=== PATIENT | female | born 1995 | race American Indian/Alaskan Native ===

== ENCOUNTER 2019-07-05 11:52 | Emergency (ER) | payer OTHER, MEDICAID, SELFPAY ==
[2019-07-05 12:06] VITALS: BP 118/70; PULSE 70; RESP 22; TEMP 37.2; O2SAT 99; BMI 33.2
--- NOTE | 2019-07-05 12:10 | DI.RAD.S_ITS ---
PROCEDURE: XR CHEST 2V INDICATIONS: cough, sob, asthma TECHNIQUE: 2 views of the chest were acquired. COMPARISON: None. FINDINGS: Surgical changes and devices: None. Lungs and pleura: Lungs are clear. No pleural effusions or pneumothorax. Mediastinum: Mediastinal contours are normal. Heart size is normal. Bones and chest wall: No suspicious bony abnormalities. Soft tissues appear unremarkable. IMPRESSION: No acute cardiopulmonary disease. Dictated by: Debbie Sue M.D. on 07/05/2019 at 12:41 Approved by: Debbie Sue M.D. on 07/05/2019 at 12:41
--- NOTE | 2019-07-05 12:13 | ED.SOB ---
HPI - SOB/Dyspnea <SOFIA Antonio - Last Filed: 07/05/19 15:37> General Chief Complaint: Shortness of Breath/Dyspnea Stated Complaint: cough/asthma Time Seen by Provider: 07/05/19 12:00 Source: patient Mode of arrival: Ambulatory Limitations: no limitations History of Present Illness HPI Narrative: The patient is a 23-year-old female current smoker with history of asthma who presents for chief complaint of an asthma attack. She complains of cough over the past 2 weeks which is worsening. She states she has been using her puffer as well as albuterol nebulizers with no improvement at home. She states she cannot stop coughing. She has been coughing so hard, that her chest hurts when she coughs. She complains of difficulty sleeping due to cough. She states her ear hurts when she is coughing. She denies any abdominal pain, vomiting or diarrhea. Related Data Home Medications Medication Instructions Recorded Confirmed albuterol sulfate [Ventolin HFA] #0 04/30/17 hydroxyzine HCl 25 mg PO BID 07/05/19 07/05/19 trazodone 50 mg PO BEDTIME 07/05/19 07/05/19 Previous Rx's Medication Instructions Recorded ipratropium-albuterol 3 ml INHALATION Q4-6H PRN #90 ml 07/05/19 prednisone 50 mg PO DAILY #5 tab 07/05/19 Allergies Allergy/AdvReac Type Severity Reaction Status Date / Time oxycodone [OXYCODONE] Allergy Severe SWELLING Verified 07/05/19 12:06 Review of Systems <SOFIA Antonio - Last Filed: 07/05/19 15:37> Review of Systems Narrative: GENERAL: Denies chills, fatigue, malaise, fever, sweats. HEENT: See HPI RESPIRATORY: See HPI CARDIOVASCULAR: Denies chest pain, palpitations, orthopnea, edema, GASTROINTESTINAL: Denies nausea, vomiting, abdominal pain, diarrhea, constipation, melena. : Denies dysuria, frequency, incontinence, hematuria, urinary retention. MUSCULOSKELETAL: denies weakness, joint pain, or bony pain SKIN: Denies rash, skin lesions, or other NEUROLOGIC: Denies weakness, headache, numbness, change in speech, confusion, seizures, incoordination. PSYCHIATRIC: No concerning psychosocial issues. 12 point review of systems is negative except for those stated above PFSH <SOFIA Antonio - Last Filed: 07/05/19 15:37> Medical History (Updated 07/05/19 @ 13:35 by SOFIA Antonio) History of asthma (Acute) Social History Smoking Status: Current every day smoker Social History Smoking Status: Current every day smoker Exam <SOFIA Antonio - Last Filed: 07/05/19 15:37> Narrative Exam Narrative: GENERAL: This is a well-nourished, well-developed patient, coughing HEAD: Atraumatic. Normocephalic. No temporal or scalp tenderness. EYES: Pupils equal round and reactive. Extraocular motions intact. No scleral icterus. No injection or drainage. ENT: Nose without bleeding, purulent drainage or septal hematoma. Throat without erythema, tonsillar hypertrophy or exudate. Uvula midline. Airway patent. Bilateral TMs pearly peterson. No erythema or bulging of tympanic membranes. NECK: Trachea midline. No JVD or lymphadenopathy. Supple, nontender, no meningeal signs. CARDIOVASCULAR: Regular rate and rhythm without murmurs, gallops, or rubs. RESPIRATORY: Diffuse expiratory wheezes bilaterally to auscultation. Breath sounds equal bilaterally. No rales or rhonchi. No stridor. No accessory muscle use. No retractions. GASTROINTESTINAL: Abdomen soft, non-tender, nondistended. No hepato-splenomegaly, or palpable masses. No guarding. EXTREMITIES: No clubbing, cyanosis, or edema. No joint tenderness, effusion, or edema noted. BACK: Nontender without deformity or crepitance. No flank tenderness. NEURO: AOx3. SKIN: No rash or erythema. Initial Vital Signs Initial Vital Signs: Vital Signs Temperature 99.0 F 07/05/19 12:06 Pulse Rate 70 07/05/19 12:06 Respiratory Rate 22 07/05/19 12:06 Blood Pressure 118/70 07/05/19 12:06 Pulse Oximetry 99 07/05/19 12:06 <Bryan Santillan DO - Last Filed: 07/05/19 15:40> Initial Vital Signs Initial Vital Signs: Vital Signs Temperature 99.0 F 07/05/19 12:06 Pulse Rate 70 07/05/19 12:06 Respiratory Rate 22 07/05/19 12:06 Blood Pressure 118/70 07/05/19 12:06 Pulse Oximetry 99 07/05/19 12:06 Course <ZOFIA Antonio-BC - Last Filed: 07/05/19 15:37> Orders Ordered: ED Orders 07/05/19 12:10 XR chest 2V Stat RT Consult Eval and Treat NOW 07/05/19 12:30 Complete Blood Count AUTO DIFF Stat Comprehensive Metabolic Panel Stat Discontinued Medications Albuterol/Ipratropium (Duoneb) 3 ml INH NOW ONE Stop: 07/05/19 12:24 Last Admin: 07/05/19 12:24 Dose: 3 ml Documented by: JONIAMMON Methylprednisolone (Solu-Medrol 125 Mg Vial) 125 mg IV NOW ONE Stop: 07/05/19 12:16 Last Admin: 07/05/19 12:31 Dose: 125 mg Documented by: LASHAWN Vital Signs Vital signs: Vital Signs - 8 hr 07/05/19 12:06 07/05/19 12:24 07/05/19 13:33 Temperature 99.0 F Pulse Rate 70 103 H 76 Respiratory Rate 22 14 16 Blood Pressure 118/70 Blood Pressure [Right Arm] 118/70 Pulse Oximetry 99 98 99 <Bryan Santillan DO - Last Filed: 07/05/19 15:40> Orders Ordered: ED Orders 07/05/19 12:10 XR chest 2V Stat RT Consult Eval and Treat NOW 07/05/19 12:30 Complete Blood Count AUTO DIFF Stat Comprehensive Metabolic Panel Stat Discontinued Medications Albuterol/Ipratropium (Duoneb) 3 ml INH NOW ONE Stop: 07/05/19 12:24 Last Admin: 07/05/19 12:24 Dose: 3 ml Documented by: JONIAMMON Methylprednisolone (Solu-Medrol 125 Mg Vial) 125 mg IV NOW ONE Stop: 07/05/19 12:16 Last Admin: 07/05/19 12:31 Dose: 125 mg Documented by: LASHAWN Vital Signs Vital signs: Vital Signs - 8 hr 07/05/19 12:06 07/05/19 12:24 07/05/19 13:33 Temperature 99.0 F Pulse Rate 70 103 H 76 Respiratory Rate 22 14 16 Blood Pressure 118/70 Blood Pressure [Right Arm] 118/70 Pulse Oximetry 99 98 99 MDM - SOB/Dyspnea <Akua Bañuelos, DOCUMENT IMAGING MANAGER-BC - Last Filed: 07/05/19 15:37> Lab Data Result diagrams: 07/05/19 12:30 07/05/19 12:30 Labs: Lab Results 07/05/19 07/05/19 Range/Units 12:30 12:30 WBC 9.3 (4.5-11.0) X10^3/uL RBC 4.19 (4.0-5.2) X10^6/uL Hgb 9.6 L (12.0-16.0) g/dL Hct 31.6 L (36-46) % MCV 75.4 L (80-100) fL MCH 23.0 L (26-34) PG MCHC 30.4 (30-36) % RDW 22.6 H (11.6-14.8) % Plt Count 287 (150-400) X10^3/uL Neut % (Auto) 63.8 (50-75) % Lymph % (Auto) 24.1 L (25-40) % [place] % (Auto) 6.1 (3-14) % Eos % (Auto) 5.2 H (2-4) % Baso % (Auto) 0.8 (0-2) % Neut # (Auto) 5900 (6618-3045) /uL Lymph # (Auto) 2200 (8003-4804) /uL [place] # (Auto) 600 (0-900) /uL Eos # (Auto) 500 H (0-450) /uL Baso # (Auto) 100 (0-100) /uL RBC Morphology See below Hypochromasia 1+ H Anisocytosis 2+ H Target Cells 1+ H Sodium 140 (137-145) mmol/L Potassium 4.0 (3.4-5.1) mmol/L Chloride 105 (98-107) mmol/L Carbon Dioxide 24 (22-32) mmol/L BUN 9 (7-17) mg/dL Creatinine 0.80 (0.52-1.04) mg/dL Estimated GFR > 60.0 (>60) mL/min BUN/Creatinine Ratio 11.3 (6-22) Glucose 91 (70-100) mg/dL Calcium 9.2 (8.4-10.2) mg/dL Total Bilirubin 0.8 (0.2-1.3) mg/dL AST 31 (14-36) IU/L ALT 16 (9-52) IU/L Alkaline Phosphatase 83 (38-126) U/L Total Protein 8.0 (6.3-8.2) g/dL Albumin 4.4 (3.5-5.0) g/dL Globulin 3.6 (1.7-4.1) g/dL Albumin/Globulin Ratio 1.2 (1.0-2.8) Imaging Data Chest x-ray: Radiologist's impression: [address] [address] XRay Report Signed Patient: Kaitlyn Hebert#: [id number] : 1995Acct:[id number] Age/Sex: 23 / FDate of Service: 07/05/19 Loc: ED Accession Number: [id number] Procedure: XR chest 2V Ordering Provider: Akua Bañuelos PROCEDURE: XR CHEST 2V INDICATIONS: cough, sob, asthma TECHNIQUE: 2 views of the chest were acquired. COMPARISON: None. FINDINGS: Surgical changes and devices: None. Lungs and pleura: Lungs are clear. No pleural effusions or pneumothorax. Mediastinum: Mediastinal contours are normal. Heart size is normal. Bones and chest wall: No suspicious bony abnormalities. Soft tissues appear unremarkable. IMPRESSION: No acute cardiopulmonary disease. Dictated by: Debbie Sue M.D. on 07/05/2019 at 12:41 Approved by: Debbie Sue M.D. on 07/05/2019 at 12:41 [facility] Narrative Medical decision making narrative: The patient is a 23-year-old female current smoker with history of asthma who presents with a chief complaint of severe asthma and cough. Who works reassuring with no leukocytosis. Her chest x-ray shows no pneumonia. She was treated in the emergency department with bonnie hsu and felt much improved. She received of respiratory therapist evaluation, spacer teaching etc. I did start her on a burst of steroids. I encouraged at length PCP follow-up. Encouraged smoking cessation. The patient is hemodynamically stable throughout her stay in the emergency department, oxygenating well. She felt ready to go home. Discussed at length rest, using appearance as needed, coming back to emergency department for any severe shortness of breath or acute concerns. Strongly encouraged to stop smoking. Patient states understanding of return precautions as well as follow-up care. No questions or concerns about discharge. <Bryan Santillan, DO - Last Filed: 07/05/19 15:40> Lab Data Labs: Lab Results 07/05/19 07/05/19 Range/Units 12:30 12:30 WBC 9.3 (4.5-11.0) X10^3/uL RBC 4.19 (4.0-5.2) X10^6/uL Hgb 9.6 L (12.0-16.0) g/dL Hct 31.6 L (36-46) % MCV 75.4 L (80-100) fL MCH 23.0 L (26-34) PG MCHC 30.4 (30-36) % RDW 22.6 H (11.6-14.8) % Plt Count 287 (150-400) X10^3/uL Neut % (Auto) 63.8 (50-75) % Lymph % (Auto) 24.1 L (25-40) % [place] % (Auto) 6.1 (3-14) % Eos % (Auto) 5.2 H (2-4) % Baso % (Auto) 0.8 (0-2) % Neut # (Auto) 5900 (5053-3922) /uL Lymph # (Auto) 2200 (2641-0718) /uL [place] # (Auto) 600 (0-900) /uL Eos # (Auto) 500 H (0-450) /uL Baso # (Auto) 100 (0-100) /uL RBC Morphology See below Hypochromasia 1+ H Anisocytosis 2+ H Target Cells 1+ H Sodium 140 (137-145) mmol/L Potassium 4.0 (3.4-5.1) mmol/L Chloride 105 (98-107) mmol/L Carbon Dioxide 24 (22-32) mmol/L BUN 9 (7-17) mg/dL Creatinine 0.80 (0.52-1.04) mg/dL Estimated GFR > 60.0 (>60) mL/min BUN/Creatinine Ratio 11.3 (6-22) Glucose 91 (70-100) mg/dL Calcium 9.2 (8.4-10.2) mg/dL Total Bilirubin 0.8 (0.2-1.3) mg/dL AST 31 (14-36) IU/L ALT 16 (9-52) IU/L Alkaline Phosphatase 83 (38-126) U/L Total Protein 8.0 (6.3-8.2) g/dL Albumin 4.4 (3.5-5.0) g/dL Globulin 3.6 (1.7-4.1) g/dL Albumin/Globulin Ratio 1.2 (1.0-2.8) Discharge Plan Departure Patient Disposition: Home Clinical Impression: Viral upper respiratory infection Asthma with exacerbation Qualifiers: Asthma severity: unspecified severity Asthma persistence: unspecified Qualified Code(s): J45.901 - Unspecified asthma with (acute) exacerbation Discharge Date/Time: 07/05/19 13:48 Instructions: DI for Asthma -- Adult, DI for Viral Upper Respiratory Infection -- Adult Activity Restrictions/Additional Instructions: Today your chest x-ray shows no pneumonia. I have given you prescriptions for different nebulizer treatments as well as a steroid burst. Please start the steroid tomorrow. Please take a few days off of work. I have also given you a note for this. Please try to stop smoking. Please follow up with primary care provider in the next few days. Please come back to the emergency department for any acute concerns such as increased shortness of breath. I also suggest [id number] medications as needed and able for your upper respiratory virus such as Flonase, nasal rinse etc Prescriptions: New ipratropium-albuterol 0.5 mg-3 mg(2.5 mg base)/3 mL solution for nebulization 3 ml INHALATION Q4-6H PRN (Reason: shortness of breath or wheezing) Qty: 90 RF: 0 prednisone 50 mg tablet 50 mg PO DAILY Qty: 5 RF: 0 No Action albuterol sulfate [Ventolin HFA] 90 MCG/PUFF HFA aerosol inhaler Qty: 0 RF: 0 trazodone 50 mg tablet 50 mg PO BEDTIME RF: 0 hydroxyzine HCl 25 mg tablet 25 mg PO BID RF: 0 Stand Alone Forms: Work Release Note <Bryan Santillan, DO - Last Filed: 07/05/19 15:40> Sign Out Provider Sign Out Attestation: I was available for consultation during this patient's emergency department encounter
[2019-07-05 12:24] VITALS: PULSE 103; RESP 14; O2SAT 98
[2019-07-05] MEDS: ALBUTEROL/IPRATROPIUM 3 ML AMPUL INH (12:24)
[2019-07-05] MEDS: methylPREDNISolone 125 MG/2 ML VIAL IV (12:31)
[2019-07-05 12:34] LABS: Add Manual Diff / Slide Review NO; Basophils Absolute Auto 100 /uL (0-100); Basophils Percent Auto 0.8 % (0-2); Eosinophils Absolute Auto 500 /uL (0-450); Eosinophils Percent Auto 5.2 % (2-4); Hematocrit 31.6 % (36-46); Hemoglobin 9.6 g/dL (12.0-16.0); Lymphocytes Absolute Auto 2200 /uL (1100-4500); Lymphocytes Percent Auto 24.1 % (25-40); Mean Corpuscular HGB Conc 30.4 % (30-36); Mean Corpuscular Volume 75.4 fL (80-100); Monocytes Absolute Auto 600 /uL (0-900); Monocytes Percent Auto 6.1 % (3-14); Neutrophils Absolute Auto 5900 /uL (1500-7000); Neutrophils Percent Auto 63.8 % (50-75); Platelet Count 287 X10^3/uL (150-400); Red Blood Cell Count 4.19 X10^6/uL (4.0-5.2); Red Cell Distribution Width 22.6 % (11.6-14.8); White Blood Cell Count 9.3 X10^3/uL (4.5-11.0)
[2019-07-05 12:45] LABS: Alanine Aminotransferase 16 IU/L (9-52); Albumin 4.4 g/dL (3.5-5.0); Albumin Globulin Ratio 1.2 (1.0-2.8); Alkaline Phosphatase 83 U/L (38-126); Aspartate Aminotransferase 31 IU/L (14-36); BUN Creatinine Ratio 11.3 (6-22); Bilirubin Total 0.8 mg/dL (0.2-1.3); Blood Urea Nitrogen 9 mg/dL (7-17); Calcium 9.2 mg/dL (8.4-10.2); Carbon Dioxide 24 mmol/L (22-32); Chloride 105 mmol/L (98-107); Estimated Glomerular Filt Rate > 60.0 mL/min (>60); Globulin 3.6 g/dL (1.7-4.1); Glucose 91 mg/dL (70-100); HEMOLYSIS < 15 (0-50); Sodium 140 mmol/L (137-145)
[2019-07-05 13:01] LABS: Anisocytosis 2+
[2019-07-05 13:02] LABS: Hypochromasia 1+; Target Cells 1+
[2019-07-05 13:33] VITALS: BP 118/70; PULSE 76; RESP 16; O2SAT 99
== END 2019-07-05 13:48 | disposition home or self-care (01) ==
PROVIDERS: Emergency Provider Nurse Practitioner Family
DX: J06.9 Acute upper respiratory infection, unspecified (principal); J45.901 Unspecified asthma with (acute) exacerbation
CPT/HCPCS: 71046; 80053; 85025; 94150; 94640; 94667; 96374; 99282; 99284; 99406; J2930

== ENCOUNTER 2020-07-21 12:40 | Emergency (ER) | payer OTHER, SELFPAY ==
[2020-07-21 13:01] VITALS: BP 147/70; PULSE 95; RESP 18; TEMP 37.4; O2SAT 99; BMI 28.1
--- NOTE | 2020-07-21 13:30 | ED.URI ---
HPI - URI/Sore Throat <WARNER Joshi - Last Filed: 07/21/20 20:40> General Chief Complaint: Upper Respiratory Symptoms Stated Complaint: Sore Throat, Throwing Up, Stuffy, Chest Pain Time Seen by Provider: 07/21/20 13:01 Source: patient Mode of arrival: Ambulatory History of Present Illness HPI Narrative: 24-year-old female with a history of asthma, presents to the emergency department for a sore throat, nausea, intermittent vomiting that has resolved,, fatigue, and cough, for the past 2 days. She states she looked at her throat today and noticed some white spots. Patient states it is difficult to swallow due to throat pain. She denies any sick contacts. She denies any fever, abdominal pain, dizziness, shortness of breath, increased use of her inhaler, continued vomiting, diarrhea, or any other concerns. Related Data Home Medications Medication Instructions Recorded Confirmed albuterol sulfate [Ventolin HFA] #0 04/30/17 hydroxyzine HCl 25 mg PO BID 07/05/19 07/05/19 trazodone 50 mg PO BEDTIME 07/05/19 07/05/19 Previous Rx's Medication Instructions Recorded ipratropium-albuterol 3 ml INHALATION Q4-6H PRN #90 ml 07/05/19 prednisone 50 mg PO DAILY #5 tab 07/05/19 Allergies Allergy/AdvReac Type Severity Reaction Status Date / Time oxycodone [OXYCODONE] Allergy Severe SWELLING Verified 07/05/19 12:06 Review of Systems <WARNER Joshi - Last Filed: 07/21/20 20:40> Review of Systems Narrative: REVIEW OF SYSTEMS: GENERAL: Denies fevers. HENT: No head trauma or hearing loss. Reports rhinorrhea, see HPI. EYES: No vision changes. CARDIOVASCULAR: No syncope. RESPIRATORY: Reports cough, see HPI. GASTROINTESTINAL: No nausea, vomiting, diarrhea, or constipation. MUSCULOSKELETAL: No weakness or injury. INTEGUMENTARY: No rash, lesions, or pruritus. NEURO: No memory loss, or confusion. Patient History <WARNER Joshi - Last Filed: 07/21/20 20:40> Medical History History of asthma (Acute) Social History Smoking Status: Current every day smoker Smoking Status: Current every day smoker alcohol intake frequency: 0-2 drinks per day Substance Use Type: does not use Exam <WARNER Joshi - Last Filed: 07/21/20 20:40> Initial Vital Signs Initial Vital Signs: Vital Signs Temperature 99.3 F 07/21/20 13:01 Pulse Rate 95 H 07/21/20 13:01 Respiratory Rate 18 07/21/20 13:01 Blood Pressure 147/70 H 07/21/20 13:01 Pulse Oximetry 99 07/21/20 13:01 PHYSICAL EXAMINATION: GENERAL: Well groomed, alert, and cooperative. Well-appearing. Answers questions promptly and appropriately. Vital signs noted. HENT: Normocephalic, atraumatic. Ear canals patent. Oropharynx with erythema, tonsils 2+ and equal bilaterally, small amount of white exudate noted. EYES: Conjunctiva pink, sclera white, no periorbital swelling. No discharge. CHEST: Normal to inspection and without deformities. CARDIOVASCULAR: S1 and S2 sounds normal. Regular rate and rhythm, no murmurs, clicks, or bruits. RESPIRATORY: Normal respiratory rate, trachea midline, airway patent. No stridor, nasal flaring or accessory muscle use. Able to speak in full sentences. Lungs are clear in all mccabe without wheeze, rhonchi, or crackles. Productive cough noted throughout examination. MUSCULOSKELETAL: Normal gait and coordination. Equal tone and mass bilaterally. EXTREMITIES: Moves all extremities. SKIN: Warm, dry, soft, appropriate color for ethnicity. No lesions, rashes, or wounds to visualized areas. NEURO: Alert and Oriented X 3. Good coordination. No ataxia or cognitive issues. PSYCH: Appropriate affect and mood. <Joseluis Talley MD - Last Filed: 07/22/20 18:05> Initial Vital Signs Initial Vital Signs: Vital Signs Temperature 99.3 F 07/21/20 13:01 Pulse Rate 95 H 07/21/20 13:01 Respiratory Rate 18 07/21/20 13:01 Blood Pressure 147/70 H 07/21/20 13:01 Pulse Oximetry 99 07/21/20 13:01 Scores <WARNER Joshi - Last Filed: 07/21/20 20:40> PERC Score Age greater than or equal to 50 years: No Heart rate greater than or equal to 100 bpm: No Room Air O2 Sat less than 95%: No Unilateral leg swelling: No Recent trauma or surgery: No Hemoptysis: No Prior PE or DVT: No Hormone Use: No Total PERC Score: 0 Wells' Criteria for PE Clinical signs and symptoms of DVT: No PE is #1 Dx or equally likely: No Heart rate > 100: No Immobilization at least 3 days or surg in previous 4 weeks: No History of PE or DVT: No Hemoptysis: No Malignancy w/Treatment within 6 months or palliative: No Wells' PE Score total: 0 Course <WARNER Joshi - Last Filed: 07/21/20 20:40> Course Course Narrative: Patient given Toradol and ondansetron to help with symptoms, reports significant improvement post medication. Orders Ordered: Discontinued Medications Ketorolac Tromethamine (Toradol) 30 mg IM NOW ONE Stop: 07/21/20 13:27 Last Admin: 07/21/20 13:36 Dose: 30 mg Documented by: RICCI Ondansetron HCl (Zofran Odt) 4 mg SL NOW ONE Stop: 07/21/20 13:32 Last Admin: 07/21/20 13:36 Dose: 4 mg Documented by: RICCI Vital Signs Vital signs: Vital Signs - 8 hr 07/21/20 13:01 07/21/20 14:01 Temperature 99.3 F Pulse Rate 95 H 90 Respiratory Rate 18 16 Blood Pressure 147/70 H 148/80 H Pulse Oximetry 99 97 <Joseluis Talley MD - Last Filed: 07/22/20 18:05> Orders Ordered: Discontinued Medications Ketorolac Tromethamine (Toradol) 30 mg IM NOW ONE Stop: 07/21/20 13:27 Last Admin: 07/21/20 13:36 Dose: 30 mg Documented by: EMIN Ondansetron HCl (Zofran Odt) 4 mg SL NOW ONE Stop: 07/21/20 13:32 Last Admin: 07/21/20 13:36 Dose: 4 mg Documented by: RICCI Vital Signs Vital signs: Vital Signs - 8 hr 07/21/20 13:01 07/21/20 14:01 Temperature 99.3 F Pulse Rate 95 H 90 Respiratory Rate 18 16 Blood Pressure 147/70 H 148/80 H Pulse Oximetry 99 97 MDM - URI/Sore Throat <WARNER Joshi - Last Filed: 07/21/20 20:40> Medical Records Attestation: I reviewed the patient's medical records. Lab Data Attestation: I reviewed the patient's lab results. Labs: Lab Results 07/21/20 Range/Units 13:16 COVID-19 PCR Negative (Negative) Point of Care Testing Rapid Strep A Negative MDM Narrative Medical decision making narrative: 24-year-old healthy appearing female presents to the emergency department for cough, fatigue, and sore throat. Strep POC negative, cover test negative. Most likely viral pharyngitis due to presence of rhinorrhea, productive cough, and sore throat. Less likely pneumonia due to clear lung sounds, patient afebrile non tachycardic. Less likely PE given associated symptoms of rhinorrhea and productive cough. Less likely acute abdominal etiology given nontender abdominal exam, resolution of vomiting yesterday, and presence of respiratory symptoms today. Patient was encouraged to stay home from work given symptoms or contact work to discuss return to work policies Declined noted this time. She was encouraged to increased rest, fluids, and monitor for any new or worsening symptoms to return to the ED. <Joseluis Talley MD - Last Filed: 07/22/20 18:05> Lab Data Labs: Lab Results 07/21/20 Range/Units 13:16 COVID-19 PCR Negative (Negative) Point of Care Testing Rapid Strep A Negative Discharge Plan Departure Patient Disposition: Home Clinical Impression: Infection of the upper respiratory tract Qualifiers: URI type: unspecified viral URI Qualified Code(s): J06.9 - Acute upper respiratory infection, unspecified Discharge Date/Time: 07/21/20 14:01 Instructions: DI for Viral Upper Respiratory Infection -- Adult Activity Restrictions/Additional Instructions: Thank you for entrusting me with your care today. As discussed, your strep test and COVID-19 test are negative. You most likely have an upper respiratory tract infection that is viral. Please take ibuprofen 400-600 mg every 8 hours as needed for pain, drink lots of fluids and rest. Return emergency department for any new or worsening symptoms. Prescriptions: No Action albuterol sulfate [Ventolin HFA] 90 MCG/PUFF HFA aerosol inhaler Qty: 0 RF: 0 trazodone 50 mg tablet 50 mg PO BEDTIME RF: 0 hydroxyzine HCl 25 mg tablet 25 mg PO BID RF: 0 ipratropium-albuterol 0.5 mg-3 mg(2.5 mg base)/3 mL solution for nebulization 3 ml INHALATION Q4-6H PRN (Reason: shortness of breath or wheezing) Qty: 90 RF: 0 prednisone 50 mg tablet 50 mg PO DAILY Qty: 5 RF: 0 <Joseluis Talley MD - Last Filed: 07/22/20 18:05> Cosign ED Attending Cosignature Attestation: I was immediately available in the department for consultation. This documentation has been reviewed and I agree with assessment and plan. Supervised by Joseluis Talley MD
[2020-07-21] MEDS: ONDANSETRON 4 MG ODT SL (13:36)
[2020-07-21] MEDS: KETOROLAC 60 MG/2 ML VIAL 30 MG IM (13:36)
[2020-07-21 13:45] LABS: COVID19 -Nasal RAPID Negative (Negative)
[2020-07-21 14:01] VITALS: BP 148/80; PULSE 90; RESP 16; O2SAT 97
== END 2020-07-21 14:01 | disposition home or self-care (01) ==
PROVIDERS: Emergency Provider Nurse Practitioner
DX: J06.9 Acute upper respiratory infection, unspecified (principal); R11.0 Nausea; R05 Cough; R53.83 Other fatigue; J02.9 Acute pharyngitis, unspecified
CPT/HCPCS: 87635; 87880; 96372; 99283; J1885